=== PATIENT | female | born 1930 | race Hispanic/Latino ===

== ENCOUNTER 2017-10-12 10:31 | Emergency (ER) | payer MEDICARE ==
[2017-10-12] MEDS ORDERED: Phenylephrine 1% Nasal Spray (15 ml) ONE (11:21)
[2017-10-12] MEDS ORDERED: Phenylephrine 1% Nasal Spray (15 ml) NAS STA (11:22)
[2017-10-12] MEDS ORDERED: Lidocaine 100 MG in Sodium Chloride 0.9% 100 ML IV STA (11:23)
[2017-10-12] MEDS ORDERED: SODIUM CHLORIDE 0.9% IV STA (11:28)
[2017-10-12] MEDS ORDERED: LIDOCAINE IV STA (11:28)
--- NOTE | 2017-10-12 12:08 | C.PDOC ---
History Of Present Illness Patient presents to ED via EMS with c/o sudden onset large nasal bleeding since 745 am today. Patient reports she has been having intermittent nose bleeds for 2 weeks. Patient reports she was not able to get bleeding to stop which prompted visit to ED. EMS applied pressure to nose and gauze. Patient denies lightheadedness, nausea, vomiting, headache, trauma or any other complaints at this time. Time Seen by Provider: 10/12/17 10:48 Chief Complaint (Nursing): ENT Problem History Per: Patient History/Exam Limitations: None Onset/Duration Of Symptoms: Hrs Current Symptoms Are (Timing): Still Present Past Medical History Reviewed: Historical Data, Nursing Documentation, Vital Signs Vital Signs: Last Vital Signs Temp 97.8 F 10/12/17 13:56 Pulse 96 H 10/12/17 13:56 Resp 16 10/12/17 13:56 BP 169/75 H 10/12/17 13:56 Pulse Ox 95 10/12/17 13:56 - Medical History PMH: Anxiety, Arthritis, HTN Surgical History: No Surg Hx Family History: States: No Known Family Hx - Social History Hx Alcohol Use: No Hx Substance Use: No - Immunization History Hx Tetanus Toxoid Vaccination: No Hx Influenza Vaccination: No Hx Pneumococcal Vaccination: No Review Of Systems Constitutional: Negative for: Fever, Chills ENT: Positive for: Nose Pain, Nose Discharge Cardiovascular: Negative for: Chest Pain, Light Headedness Respiratory: Negative for: Shortness of Breath Gastrointestinal: Negative for: Nausea, Vomiting Skin: Negative for: Rash Physical Exam - Physical Exam Appears: Non-toxic, No Acute Distress Skin: Warm, Dry, No Rash Head: Atraumatic, Normacephalic Eye(s): bilateral: Normal Inspection Nose: Epistaxis (large amount to right nare), No Deformity Oral Mucosa: Moist Throat: No Exudate, Other (+blood to posterior pharynx) Neck: Normal ROM, Supple Cardiovascular: Rhythm Regular Respiratory: Normal Breath Sounds, No Rales, No Rhonchi, No Wheezing Gastrointestinal/Abdominal: Soft, No Tenderness, No Guarding, No Rebound Extremity: Normal ROM, Capillary Refill (<2 seconds) Neurological/Psych: Oriented x3, Normal Speech, Normal Cognition ED Course And Treatment - Laboratory Results Result Diagrams: 10/12/17 12:09 10/12/17 12:09 O2 Sat by Pulse Oximetry: 94 (RA) Pulse Ox Interpretation: Normal Critical Care Time - Critical Care Note Total Time (in mins): 40 Comments: See medical decision making. Documented critical care: time excludes all time spent performing seperately billable procedures. Medical Decision Making Medical Decision Making: Progress: * Pressure was applied to nose to control bleeding, no success * Phenylephrine spray into nose with out success * Lidocaine 2% with Synephrine w/posterior packing placed by LEMUEL Walker The case was discussed with Dr. De Souza (ENT oncall) who states that the patient can be discharged on augmentin and will see the patient in office in 2 days. Disposition - Disposition Referrals: Logan De Souza MD [Staff Provider] - Disposition: HOME/ ROUTINE Disposition Time: 13:08 Condition: FAIR Additional Instructions: see Dr. De Souza on Monday morning without fail. return if worsened. Prescriptions: Amoxicillin/Clavulanate [Augmentin 875 MG-125 MG] 1 tab PO BID #14 tab Instructions: Nosebleeds (DC) Forms: Front Up (Faroese) - Clinical Impression Clinical Impression: Epistaxis - PA / PARTS INSPECTOR / Resident Statement MD/DO has reviewed & agrees with the documentation as recorded. - Scribe Statement The provider has reviewed the documentation as recorded by the Nettaibeleno Gusman All medical record entries made by the Nettaibeleno were at my direction and personally dictated by me. I have reviewed the chart and agree that the record accurately reflects my personal performance of the history, physical exam, medical decision making, and the department course for this patient. I have also personally directed, reviewed, and agree with the discharge instructions and disposition. Procedures - Epistaxis Control Consent Obtained: verbal consent Nostril: Right Nose Prepped With: lidocaine, phenylephrine Direct Inspection: unable to visualize Clots Removed by: blowing nose, manually Device Inserted: hemostatic balloon, hemostatic dressing Device Size: 7 (7) Patient Tolerated Procedure: well, no complications
[2017-10-12 12:16] LABS: BASO % 0.5 % (0.0-2.0); EOS # 0.1 K/uL (0.0-0.7); EOS % 0.7 % (0.0-4.0); HEMOGLOBIN 15.2 g/dL (11.0-16.0); LYMPH # 1.4 K/uL (1.0-4.3); LYMPH % 16.7 % (20.0-40.0); MEAN CELL VOLUME 98.5 fL (81.0-99.0); MEAN CORPUSCULAR HEMOGLOBIN 34.8 pg (27.0-31.0); MEAN CORPUSCULAR HGB CONC 35.3 g/dL (33.0-37.0); MEAN PLATELET VOLUME 7.3 fL (7.2-11.7); MONO # 0.8 K/uL (0.0-0.8); MONO % 9.9 % (0.0-10.0); NEUT % 72.2 % (50.0-75.0); RBC 4.36 Mil/uL (3.80-5.20); RED CELL DISTRIBUTION WIDTH 13.9 % (11.5-14.5); WHITE BLOOD COUNT 8.3 K/uL (4.8-10.8)
[2017-10-12 12:20] LABS: INR 1.3
[2017-10-12 12:24] LABS: ALB/GLOB RATIO 1.1 (1.0-2.1); ALBUMIN 4.3 g/dL (3.5-5.0); ALT/SGPT 22 U/L (9-52); AST/SGOT 30 U/L (14-36); BLOOD UREA NITROGEN 20 mg/dL (7-17); CALCIUM 9.3 mg/dl (8.6-10.4); GFR AFRICAN-AMERICAN > 60; GFR NON-AFRICAN AMERICAN > 60; PROTHROMBIN TIME 15.1 SECONDS (9.7-12.2)
[2017-10-12 14:02] VITALS: BP 169/75; PULSE 96; RESP 16; TEMP 97.8
[2017-10-12 18:22] VITALS: O2SAT 94
== END 2017-10-12 13:57 | disposition home or self-care (01) ==
LOC: C.ER 10:31
DX: R04.0 Epistaxis (principal)